=== PATIENT | male | born 1985 | race Caucasian/White ===

== ENCOUNTER 2021-06-24 03:30 | Emergency (ER) | payer OTHER ==
[~2021-06-24] VITALS: Ht 160 cm; Wt 65.8 kg
[2021-06-24] MEDS ORDERED: IBU-200200 MG PO (03:43)
[2021-06-24] MEDS ORDERED: DOXYCYCLINE 10100 MG PO (04:36)
[2021-06-24] MEDS ORDERED: IBUPROFEN 800800 MG PO (04:36)
[2021-06-24 04:45] VITALS: BP 135/95
== END 2021-06-24 04:45 | disposition home or self-care (01) ==
LOC: M.ERS 03:30
DX: S80.862A Insect bite (nonvenomous), left lower leg, initial encounter (principal); L03.116 Cellulitis of left lower limb; Z79.899 Other long term (current) drug therapy; Z88.1 Allergy status to other antibiotic agents; Z88.0 Allergy status to penicillin; W57.XXXA Bitten or stung by nonvenomous insect and other nonvenomous arthropods, initial encounter; Y93.89 Activity, other specified; Y92.89 Other specified places as the place of occurrence of the external cause; Y99.8 Other external cause status